=== PATIENT | female | born 1950 | race Caucasian/White ===

== ENCOUNTER 2016-11-21 14:19 | Emergency (ER) | payer OTHER ==
[~2016-11-21] VITALS: Ht 152.4 cm; Wt 87.0 kg
[2016-11-21 14:27] VITALS: Ht 152.4 cm; Wt 87.0 kg
[2016-11-21] MEDS ORDERED: METF1000 PO (17:40)
[2016-11-21] MEDS ORDERED: AMLO-147 PO (17:41)
[2016-11-21] MEDS ORDERED: HYD25 PO (17:41)
[2016-11-21] MEDS ORDERED: LISI20TA11 PO (17:42)
[2016-11-21] MEDS ORDERED: ATOR40TA68 PO (17:42)
[2016-11-21] MEDS ORDERED: GLIM2TAB PO (17:42)
[2016-11-21] MEDS ORDERED: CARV6.2579 PO (17:43)
[2016-11-21] MEDS ORDERED: ONDANSETRON 4 MG INJ IV STA (17:57)
[2016-11-21] MEDS ORDERED: HYDROmorphONE 1 MG/ML SYG IV STA (17:57)
[2016-11-21 18:14] LABS: BASOPHILS % 0.2 % (0.0-2.0); HEMATOCRIT 39.6 % (37.0-47.0); HEMOGLOBIN 13.2 g/dl (12.0-16.0); LYMPHOCYTES # 1.6 10^3/ul (0.8-2.9); LYMPHOCYTES % 17.4 % (15.0-51.0); MEAN CORPUSCULAR HEMOGLOBIN 30.8 pg (29.0-33.0); MEAN CORPUSCULAR HGB CONC 33.3 g/dl (32.0-37.0); MEAN CORPUSCULAR VOLUME 92.5 fl (82.0-101.0); MEAN PLATELET VOLUME 9.5 fl (7.4-10.4); MONOCYTE # 1.1 10^3/ul (0.3-0.9); MONOCYTES % 12.7 % (0.0-11.0); NEUTROPHILS % 69.5 % (39.0-77.0); PLATELET COUNT 229 10^3/UL (140-415); RED BLOOD COUNT 4.28 10^6/ul (4.20-5.40); RED CELL DISTRIBUTION WIDTH 12.7 % (11.5-14.5); WHITE BLOOD COUNT 8.9 10^3/ul (4.8-10.8)
[2016-11-21 18:21] LABS: ALBUMIN 4.1 g/dl (3.3-4.9); ALBUMIN/GLOBULIN RATIO 0.83; BILIRUBIN,INDIRECT 0.6 mg/dl (0-1.1); BILIRUBIN,TOTAL 0.6 mg/dl (0.2-1.3)
[2016-11-21 18:24] LABS: ADD UMIC YES; UR ASCORBIC ACID NEGATIVE (NEGATIVE); UR BILIRUBIN (Dip) 1+ mg/dL (NEGATIVE); UR BLOOD (Dip) NEGATIVE (NEGATIVE); UR CLARITY SLIGHTLY CLOUDY (CLEAR); UR COLOR AMBER (YELLOW); UR GLUCOSE (Dip) 1+ mg/dL (NEGATIVE); UR KETONES (Dip) TRACE mg/dL (NEGATIVE); UR LEUKOCYTE ESTERASE (Dip) 2+ Leu/ul (NEGATIVE); UR MUCUS MODERATE /HPF (NONE SEEN); UR NITRITE (Dip) NEGATIVE (NEGATIVE); UR RBC 3 /HPF (0-5); UR SPECIFIC GRAVITY (Dip) 1.033 (1.003-1.030); UR SQUAMOUS EPITHELIAL CELL FEW /HPF (FEW); UR TOTAL PROTEIN (Dip) 1+ mg/dl (NEGATIVE); UR UROBILINOGEN (Dip) 2+ mg/dL (NEGATIVE)
[2016-11-21] MEDS ORDERED: IOHEXOL 300MG/ML 150 ML BTL ONE (20:10)
[2016-11-21] MEDS ORDERED: SOD CHLORIDE 0.9% 100 ML ONE (20:10)
--- NOTE | 2016-11-21 21:46 | RADRPT ---
PROCEDURE: CT Abdomen and Pelvis with contrast. CLINICAL INDICATION: Abdominal pain. TECHNIQUE: CT scan of the abdomen and pelvis with contrast was performed on a multi-detector high- resolution CT scanner. The patient was scanned following the uncomplicated intravenous administrati on of 100 cc of Visipaque 320. Coronal and sagittal reformatted images were obtained from the axial source images. Images were reviewed on a high-resolution PACS workstation. The total exam CTDI equa ls 22.90 mGy and the total exam DLP equals 1411.92 mGy-cm. One or more of the following dose reduction techniques were used: Automated exposure control. Adjustment of the mA and/or kV according to patient size. Use of iterative reconstruction technique. COMPARISON: None. FINDINGS: CT abdomen: The lung bases are remarkable for bibasilar atelectasis. The heart size is mildly enlarged without pericardial thickening or effusion. Coronary artery calcifications are present. The liver is normal in size and density . There is approximately 1.8 cm indeterminate hypodensity i n segment 6 of the liver. Trace perihepatic and perisplenic ascites is present. The spleen is naga l in size and homogeneous in density. The stomach is partially collapsed, but is grossly unremarkab le. The pancreas as visualized is normal. The gallbladder is unremarkable. There is no evidence f or biliary dilatation. The adrenal glands are symmetric and normal. The kidneys are symmetrically unremarkable as well. No renal calculus or obstructive uropathy or mass lesion is seen. The aorta is of normal caliber. Aortic vascular calcifications are present. There is no retroperit shepard lymphadenopathy. The earline hepatis region is clear. There is a small bowel and fluid containi ng periumbilical hernia. There are moderately dilated multiple loops of small bowel proximal to the periumbilical hernia with decompressed distal ileal loops in keeping with at least partial small bow el obstruction. There is mild mesenteric edema in the root of the mesentery. CT pelvis: The small bowel loops situated within the pelvis are unremarkable. The uterus is absent. The pelvi c sidewalls and inguinal regions are clear. The sigmoid colon and rectum are remarkable for sigmoid diverticulosis. No mass, lymphadenopathy, or free fluid is seen. The bladder is normal. The surro unding osseous structures are unremarkable. No osteolytic or osteoblastic lesion is detected. IMPRESSION: 1. Small bowel containing periumbilical hernia with moderate dilatation of multiple loops of proxima l small bowel with decompressed ileal loops in keeping with at least partial small bowel obstruction . Fluid is seen in the hernia sac. Mild mesenteric edema. Trace ascites in the upper abdomen. 2. Sigmoid diverticulosis without evidence of acute diverticulitis. 3. Approximately 1.8 cm indeterminate hypodensity within the right posterior hepatic lobe (segment 6). Consider liver MRI with contrast for definitive characterization. 4. Small hiatal hernia. 5. Aortoiliac atherosclerosis. 6. Mild cardiomegaly. RPTAT: HHO .Felix Watts MD, Date Time Electronically viewed and signed by .Felix Watts MD, on 11/21/2016 21:46 .O/
--- NOTE | 2016-11-21 23:01 | ERD ---
ER Documentation Chief Complaint Date/Time DATE: 11/21/16 TIME: 22:58 Chief Complaint VOMITING X 3 DAYS HPI This 66-year-old female complains of vomiting for 3 days. She says she had a bowel movement yesterday. She said his bowel movement was solid. She has no fever she says she has no abdominal pain she says she vomits mostly when she attempts any oral intake. No fever chills or shortness of breath no urinary symptoms. There is no blood or bile in the vomit ROS All systems reviewed and are negative except as per history of present illness. Medications Home Meds Reported Medications Carvedilol* (Carvedilol*) 6.25 Mg Tablet, 6.25 MG PO BID, #60 TAB 11/21/16 Atorvastatin* (Atorvastatin*) 40 Mg Tablet, 40 MG PO DAILY, #30 TAB 11/21/16 Glimepiride* (Glimepiride*) 2 Mg Tablet, 2 MG PO WITH BREAKFAST, TAB 11/21/16 Lisinopril* (Lisinopril*) 20 Mg Tablet, 20 MG PO DAILY, #30 TAB 11/21/16 Amlodipine Besylate* (Amlodipine Besylate*) 10 Mg Tablet, 10 MG PO DAILY, #30 TAB 11/21/16 Hydrochlorothiazide* (Hydrochlorothiazide*) 25 Mg Tab, 25 MG PO DAILY, #30 TAB 11/21/16 Metformin Hcl* (Metformin Hcl*) 1,000 Mg Tablet, 1000 MG PO WITH BREAKFAST DINNE , #60 TAB 11/21/16 Allergies Allergies: Coded Allergies: No Known Allergy (Unverified , 11/21/16) PMhx/Soc Hx Alcohol Use: No Hx Substance Use: No Hx Tobacco Use: No Smoking Status: Never smoker FmHx Family History: No coronary disease Physical Exam Vitals Vital Signs Date Time Temp Pulse Resp B/P Pulse Ox O2 Delivery O2 Flow Rate FiO2 11/21/16 22:15 97.6 79 18 141/82 96 Room Air Nasal Cannula 11/21/16 18:44 97.9 85 18 118/93 94 Nasal Cannula 2.0 11/21/16 14:27 98.1 101 18 162/74 98 Physical Exam Const: Well-developed, well-nourished Head: Atraumatic, normocephalic Eyes: Normal Conjunctiva, PERRLA, EOMI, normal sclera, no nystagmus ENT: Normal External Ears, Nose and Mouth, moist mucus membranes. Neck: Full range of motion. No meningismus, no lymphadenopathy. Resp: Clear to auscultation bilaterally, no wheezing, rhonchi, rales Cardio: Regular rate and rhythm, no murmurs, S1 S2 present Abd: Soft, non tender x 4, non distended. Normal bowel sounds, no guarding or rebound, no pulsitile abdominal masses or bruits, there is an umbilical hernia presents but is nontender Skin: No petechiae or rashes, no ecchymosis , no maculopapular rash Back: No midline or flank tenderness Ext: No cyanosis, or edema, FROM x 4, normal inspection, neurovascularly intact x 4 Neur: Awake and alert, STR 5/5 x 4, sensation intact x 4, no focal findings, cerebellum intact Psych: Normal Mood and Affect Result Diagram: 11/21/16 1742 11/21/16 1742 Results 24 hrs Laboratory Tests Test 11/21/16 17:42 White Blood Count 8.910^3/ul Red Blood Count 4.2810^6/ul Hemoglobin 13.2g/dl Hematocrit 39.6% Mean Corpuscular Volume 92.5fl Mean Corpuscular Hemoglobin 30.8pg Mean Corpuscular Hemoglobin Concent 33.3g/dl Red Cell Distribution Width 12.7% Platelet Count 75687^3/UL Mean Platelet Volume 9.5fl Neutrophils % 69.5% Lymphocytes % 17.4% Monocytes % 12.7% Eosinophils % 0.0% Basophils % 0.2% Nucleated Red Blood Cells % 0.0/100WBC Neutrophils # (Manual) 6.210^3/ul Lymphocytes # 1.610^3/ul Monocytes # 1.110^3/ul Eosinophils # 0.010^3/ul Basophils # 0.010^3/ul Nucleated Red Blood Cells # 0.010^3/ul Urine Color JAK Urine Clarity SLIGHTLY CLOUDY Urine pH 5.0 Urine Specific [place] 1.033 Urine Ketones TRACEmg/dL Urine Nitrite NEGATIVEmg/dL Urine Bilirubin 1+mg/dL Urine Urobilinogen 2+mg/dL Urine Leukocyte Esterase 2+Carlos/ul Urine Microscopic RBC 3/HPF Urine Microscopic WBC 5/HPF Urine Squamous Epithelial Cells FEW/HPF Urine Mucus MODERATE/HPF Urine Hemoglobin NEGATIVEmg/dL Urine Glucose 1+mg/dL Urine Total Protein 1+mg/dl Sodium Level 143mmol/L Potassium Level 4.0mmol/L Chloride Level 101mmol/L Carbon Dioxide Level 31mmol/L Anion Gap 15 Blood Urea Nitrogen 49mg/dl Creatinine 1.00mg/dl Glucose Level 245mg/dl Calcium Level 9.0mg/dl Total Bilirubin 0.6mg/dl Direct Bilirubin 0.00mg/dl Indirect Bilirubin 0.6mg/dl Aspartate Amino Transf (AST/SGOT) 31IU/L Alanine Aminotransferase (ALT/SGPT) 22IU/L Alkaline Phosphatase 91IU/L Total Protein 9.0g/dl Albumin 4.1g/dl Globulin 4.90g/dl Albumin/Globulin Ratio 0.83 Lipase 62U/L Current Medications Medications (Trade) Dose Ordered Sig/Yoly Route PRN Reason Start Time Stop Time Status Last Admin Dose Admin Hydromorphone HCl (Dilaudid) 1 mg ONCE STAT IV 11/21/16 17:57 11/21/16 17:58 DC 11/21/16 18:42 Ondansetron HCl (Zofran Inj) 4 mg ONCE STAT IV 11/21/16 17:57 11/21/16 17:58 DC 11/21/16 18:41 Iohexol 150 ml 150 ml STK-MED ONCE .ROUTE 11/21/16 20:10 11/21/16 20:11 DC 11/21/16 20:29 Sodium Chloride (NS) 100 ml @ ud STK-MED ONCE .ROUTE 11/21/16 20:10 11/21/16 20:11 DC 11/21/16 20:29 Procedures/MDM PROCEDURE: CT Abdomen and Pelvis with contrast. CLINICAL INDICATION: Abdominal pain. TECHNIQUE: CT scan of the abdomen and pelvis with contrast was performed on a multi-detector high-resolution CT scanner. The patient was scanned following the uncomplicated intravenous administration of 100 cc of Visipaque 320. Coronal and sagittal reformatted images were obtained from the axial source images. Images were reviewed on a high-resolution PACS workstation. The total exam CTDI equals 22.90 mGy and the total exam DLP equals 1411.92 mGy-cm. One or more of the following dose reduction techniques were used: Automated exposure control. Adjustment of the mA and/or kV according to patient size. Use of iterative reconstruction technique. COMPARISON: None. FINDINGS: CT abdomen: The lung bases are remarkable for bibasilar atelectasis. The heart size is mildly enlarged without pericardial thickening or effusion. Coronary artery calcifications are present. The liver is normal in size and density . There is approximately 1.8 cm indeterminate hypodensity in segment 6 of the liver. Trace perihepatic and perisplenic ascites is present. The spleen is normal in size and homogeneous in density. The stomach is partially collapsed, but is grossly unremarkable. The pancreas as visualized is normal. The gallbladder is unremarkable. There is no evidence for biliary dilatation. The adrenal glands are symmetric and normal. The kidneys are symmetrically unremarkable as well. No renal calculus or obstructive uropathy or mass lesion is seen. The aorta is of normal caliber. Aortic vascular calcifications are present. There is no retroperitoneal lymphadenopathy. The earline hepatis region is clear. There is a small bowel and fluid containing periumbilical hernia. There are moderately dilated multiple loops of small bowel proximal to the periumbilical hernia with decompressed distal ileal loops in keeping with at least partial small bowel obstruction. There is mild mesenteric edema in the root of the mesentery. CT pelvis: The small bowel loops situated within the pelvis are unremarkable. The uterus is absent. The pelvic sidewalls and inguinal regions are clear. The sigmoid colon and rectum are remarkable for sigmoid diverticulosis. No mass, lymphadenopathy, or free fluid is seen. The bladder is normal. The surrounding osseous structures are unremarkable. No osteolytic or osteoblastic lesion is detected. IMPRESSION: 1. Small bowel containing periumbilical hernia with moderate dilatation of multiple loops of proximal small bowel with decompressed ileal loops in keeping with at least partial small bowel obstruction. Fluid is seen in the hernia sac. Mild mesenteric edema. Trace ascites in the upper abdomen. 2. Sigmoid diverticulosis without evidence of acute diverticulitis. 3. Approximately 1.8 cm indeterminate hypodensity within the right posterior hepatic lobe (segment 6). Consider liver MRI with contrast for definitive characterization. 4. Small hiatal hernia. 5. Aortoiliac atherosclerosis. 6. Mild cardiomegaly. RPTAT: HHO .Felix Watts MD, Date Time Electronically viewed and signed by .Felix Watts MD, MD on 11/21/2016 21:46 .O/ CC: ZBIGNIEW ABRAHAM DO Reexamination the patient does not have any abdominal pain and no tenderness to the hernia. I did manually put pressure on the hernia to reduce it and can get most of the hernia back inside the abdominal cavity. The hernia did return but not to the degree that it was initially. The patient is safe to go home as she is not having a complete bowel obstruction and she has no abdominal pain or hernia pain. I spoke with her and the family and given warning signs to return including abdominal pain and persistent vomiting or any other new symptoms Departure Diagnosis: Primary Impression: Vomiting Vomiting type: unspecified Vomiting Intractability: non-intractable Nausea presence: with nausea Qualified Code: R11.2 - Non-intractable vomiting with nausea, unspecified vomiting type Additional Impression: Umbilical hernia Obstruction and gangrene presence: without obstruction or gangrene Qualified Code: K42.9 - Umbilical hernia without obstruction and without gangrene Condition: Stable ZBIGNIEW ABRAHAM DO Nov 21, 2016 23:01
[2016-11-21] MEDS ORDERED: ONDA4TAB14 PO (23:02)
[2016-11-21 23:13] VITALS: BP 133/74; PULSE 84; RESP 17; TEMP 96.5
== END 2016-11-21 23:15 | disposition home or self-care (01) ==
LOC: E/R 14:19
DX: R11.2 Nausea with vomiting, unspecified (principal); K42.9 Umbilical hernia without obstruction or gangrene; Z79.84 Long term (current) use of oral hypoglycemic drugs
CPT/HCPCS: 36415; 74177; 80053; 81001; 83690; 85025; 96374; 96375; 99285; J1170; J2405; Q9967

== ENCOUNTER 2016-11-23 11:30 | Inpatient (IN) | payer OTHER ==
[~2016-11-23] VITALS: Ht 152.4 cm; Wt 90.0 kg
[~2016-11-23 11:30] MED LIST: AMLO-147 PO; ATOR40TA68 PO; CARV6.2579 PO; GLIM2TAB PO; HYD25 PO; LISI20TA11 PO; METF1000 PO; ONDA4TAB14 PO
[2016-11-23 14:38] LABS: BASOPHILS % 0.2 % (0.0-2.0); HEMATOCRIT 40.8 % (37.0-47.0); HEMOGLOBIN 13.8 g/dl (12.0-16.0); LYMPHOCYTES # 2.5 10^3/ul (0.8-2.9); LYMPHOCYTES % 19.5 % (15.0-51.0); MEAN CORPUSCULAR HEMOGLOBIN 31.5 pg (29.0-33.0); MEAN CORPUSCULAR HGB CONC 33.8 g/dl (32.0-37.0); MEAN CORPUSCULAR VOLUME 93.2 fl (82.0-101.0); MEAN PLATELET VOLUME 9.5 fl (7.4-10.4); MONOCYTE # 1.5 10^3/ul (0.3-0.9); MONOCYTES % 11.4 % (0.0-11.0); NEUTROPHILS % 68.5 % (39.0-77.0); PLATELET COUNT 201 10^3/UL (140-415); RED BLOOD COUNT 4.38 10^6/ul (4.20-5.40); RED CELL DISTRIBUTION WIDTH 12.1 % (11.5-14.5); WHITE BLOOD COUNT 12.7 10^3/ul (4.8-10.8)
[2016-11-23 15:16] LABS: ALBUMIN 4.1 g/dl (3.3-4.9); ALBUMIN/GLOBULIN RATIO 0.89; BILIRUBIN,INDIRECT 0.5 mg/dl (0-1.1); BILIRUBIN,TOTAL 0.5 mg/dl (0.2-1.3); CALCIUM 8.7 mg/dl (8.4-10.2); CREATININE 1.22 mg/dl (0.44-1.00); POTASSIUM 3.9 mmol/L (3.5-5.1); TOTAL PROTEIN 8.7 g/dl (6.1-8.1)
[2016-11-23] MEDS ORDERED: ONDANSETRON 4 MG INJ IV STA (16:40)
[2016-11-23] MEDS ORDERED: SOD CHLORIDE 0.9% 100 ML ONE (17:21)
[2016-11-23] MEDS ORDERED: IODIXANOL LOCM 100 ML BTL ONE (17:21)
[2016-11-23] MEDS ORDERED: IOHEXOL 300MG/ML 150 ML BTL ONE (17:21)
--- NOTE | 2016-11-23 18:25 | RADRPT ---
PROCEDURE: CT abdomen and pelvis with IV contrast. CLINICAL INDICATION: Abdomen pain. TECHNIQUE: CT scan of the abdomen and pelvis was performed on a [address] scanner. The patient is scanned following the uncomplicated IV administration of 80 cc Visipaque-320. Coronal and sagitt al reformatted images were obtained from the axial source images. Images were reviewed on a tomoguides PACS workstation. Total radiation dose: Total CTDIvol: 22.4 mGy. Total DLP: 1299 mGy-cm. One or more of the followi ng dose reduction techniques were used: automated exposure control, adjustment of the mA and/or kV a ccording to patient size, or use of iterative reconstruction technique. COMPARISON: CT abdomen pelvis, 11/21/2016. FINDINGS: CT abdomen: The lung bases are clear. The heart is not enlarged without pericardial thickening or effusion.. There is 1.5 cm low density lesion in the inferior tip of the right liver, unchanged. The liver is n ormal in size and density without focal mass or intrahepatic biliary dilatation. The spleen is norm al in size and homogeneous in density. The stomach is partially collapsed but is grossly unremarkab le. The pancreas as visualized is normal. The gallbladder is normal and there is no evidence of biliary dilatation. The adrenal glands are symmetrical and normal. The kidneys are symmetrically normal bilaterally. N o renal calculus or obstructive uropathy or mass lesion is seen.. The aorta is normal in caliber. There is no retroperitoneal lymphadenopathy. The earline hepatis reg ion is clear. There are moderately dilated multiple loops of small bowel proximal to the umbilical hernia with decompressed distal ileal loops in keeping with at least partial small bowel obstruction . There is mild mesenteric edema in the root of the mesentery. CT pelvis: There is no indication of acute appendicitis in the right lower quadrant. There is diverticulosis of the sigmoid colon without evidence of diverticulitis.. The female pelvic organs are normal. The p elvic sidewalls and inguinal regions are clear. No mass, lymphadenopathy or free fluid is seen. No acute inflammation seen. The urinary bladder is normal. The surrounding osseous structures are unremarkable. No osteolytic or osteoblastic lesion is detect ed. IMPRESSION: 1. Moderately dilated multiple loops of small bowel proximal to the umbilical hernia with decompres sed distal ileal loops in keeping with partial small bowel obstruction. There has been interval wor sening of the small bowel obstruction. Recommend gastrografin small-bowel series. Small fluid in t he hernia sac. 2. 1.5 cm low density lesion in the inferior tip of the right liver, unchanged. 3. Diverticulosis of the sigmoid colon without evidence of diverticulitis. RPTAT: GG .Federico Driver MD, Date Time Electronically viewed and signed by .Federico Driver MD, on 11/23/2016 18:25 .Y/
--- NOTE | 2016-11-23 18:30 | ERA ---
ER Documentation Chief Complaint Date/Time DATE: 11/23/16 TIME: 18:21 Chief Complaint ap since last tuesday HPI This is a 66-year-old female with a history of diabetes, hypertension, hyperlipidemia, known periumbilical abdominal hernia who is presenting to the emergency department with recurrence of her abdominal symptoms. The patient presented 3 days ago with similar symptoms of periumbilical abdominal pain and distention with nausea and vomiting. The patient endorses yellow and clear vomit. It is nonbilious and nonbloody. The patient had a CAT scan during her previous emergency visit that demonstrated a small bowel containing periumbilical hernia with moderate dilatation of multiple loops of proximal small bowel with decompressed ileal loops that was concerning for a partial small bowel obstruction. There is also a 1.8 cm indeterminate hypodensity in the liver. A surgical evaluation was completed and it was felt that the patient was stable for discharge after decompression of the hernia. The patient 's symptoms recurred one day after her previous visit. She continues to have periumbilical abdominal pain. She continues to be nauseated and with vomiting as described above. She has had a decreased appetite as well. She saw her primary care doctor today who recommended that she be reevaluated in the emergency department. The patient denies fever or chills. She denies chest pain. She has had some shortness of breath associated with her abdominal distention. She does not had any changes to urination. She has had no bleeding or burning or pain with urination. She does endorse increased constipation. She has not had any diarrhea. ROS All systems reviewed and are negative except as per history of present illness. Medications Home Meds Active Scripts Ondansetron (Ondansetron Odt) 4 Mg Tab.rapdis, 4 MG PO Q6H Y for NAUSEA AND/OR VOMITING, #10 TAB Prov:ZBIGNIEW ABRAHAM DO 11/21/16 Reported Medications Carvedilol* (Carvedilol*) 6.25 Mg Tablet, 6.25 MG PO BID, #60 TAB 11/21/16 Atorvastatin* (Atorvastatin*) 40 Mg Tablet, 40 MG PO DAILY, #30 TAB 11/21/16 Glimepiride* (Glimepiride*) 2 Mg Tablet, 2 MG PO WITH BREAKFAST, TAB 11/21/16 Lisinopril* (Lisinopril*) 20 Mg Tablet, 20 MG PO DAILY, #30 TAB 11/21/16 Amlodipine Besylate* (Amlodipine Besylate*) 10 Mg Tablet, 10 MG PO DAILY, #30 TAB 11/21/16 Hydrochlorothiazide* (Hydrochlorothiazide*) 25 Mg Tab, 25 MG PO DAILY, #30 TAB 11/21/16 Metformin Hcl* (Metformin Hcl*) 1,000 Mg Tablet, 1000 MG PO WITH BREAKFAST DINNE , #60 TAB 11/21/16 Allergies Allergies: Coded Allergies: No Known Allergy (Unverified , 11/23/16) PMhx/Soc Hx Miscellaneous Medical Probl: Yes (hernia) Hx Alcohol Use: No Hx Substance Use: No Hx Tobacco Use: No Smoking Status: Never smoker FmHx Family History: diabetes Physical Exam Vitals Vital Signs Date Time Temp Pulse Resp B/P Pulse Ox O2 Delivery O2 Flow Rate FiO2 11/23/16 21:33 98.1 94 18 135/81 100 Room Air 11/23/16 18:43 98.1 96 18 120/68 95 Room Air 11/23/16 14:10 84 144/86 100 Room Air 11/23/16 11:47 98.1 99 18 138/93 99 Physical Exam Const: NAD, Well Nourished, Well Developed Head: Atraumatic Eyes: Normal Conjunctiva ENT: Normal External Ears, Nose. Dry Mucous Membranes. Neck: Full range of motion. ~ No meningismus. Resp: Clear to auscultation bilaterally Cardio: Regular rate and rhythm, no murmurs Abd: Soft, periumbilical tenderness, distended. Periumbilical hernia, reducible, not cyanotic. Decreased bowel sounds Skin: No petechiae or rashes Back: No midline or flank tenderness Ext: No cyanosis, or edema Neur: Awake and alert, strength normal, sensation normal, CN intact. Psych: Normal Mood and Affect Result Diagram: 11/23/16 1430 11/23/16 1430 Results 24 hrs Laboratory Tests Test 11/23/16 14:30 11/23/16 17:30 White Blood Count 12.710^3/ul Red Blood Count 4.3810^6/ul Hemoglobin 13.8g/dl Hematocrit 40.8% Mean Corpuscular Volume 93.2fl Mean Corpuscular Hemoglobin 31.5pg Mean Corpuscular Hemoglobin Concent 33.8g/dl Red Cell Distribution Width 12.1% Platelet Count 99375^3/UL Mean Platelet Volume 9.5fl Neutrophils % 68.5% Lymphocytes % 19.5% Monocytes % 11.4% Eosinophils % 0.0% Basophils % 0.2% Nucleated Red Blood Cells % 0.0/100WBC Neutrophils # (Manual) 8.710^3/ul Lymphocytes # 2.510^3/ul Monocytes # 1.510^3/ul Eosinophils # 0.010^3/ul Basophils # 0.010^3/ul Nucleated Red Blood Cells # 0.010^3/ul Sodium Level 141mmol/L Potassium Level 3.9mmol/L Chloride Level 96mmol/L Carbon Dioxide Level 31mmol/L Anion Gap 18 Blood Urea Nitrogen 54mg/dl Creatinine 1.22mg/dl Glucose Level 209mg/dl Calcium Level 8.7mg/dl Total Bilirubin 0.5mg/dl Direct Bilirubin 0.00mg/dl Indirect Bilirubin 0.5mg/dl Aspartate Amino Transf (AST/SGOT) 47IU/L Alanine Aminotransferase (ALT/SGPT) 62IU/L Alkaline Phosphatase 90IU/L Total Protein 8.7g/dl Albumin 4.1g/dl Globulin 4.60g/dl Albumin/Globulin Ratio 0.89 Lipase 81U/L Lactic Acid Level 3.1mmol/L Current Medications Medications (Trade) Dose Ordered Sig/Yoly Route PRN Reason Start Time Stop Time Status Last Admin Dose Admin Ondansetron HCl (Zofran Inj) 4 mg ONCE STAT IV 11/23/16 16:40 11/23/16 16:43 DC 11/23/16 17:21 IV Flush 10 ml 10 ml STK-MED ONCE .ROUTE 11/23/16 17:21 11/23/16 17:22 DC 11/23/16 17:48 Sodium Chloride (NS) 100 ml @ ud STK-MED ONCE .ROUTE 11/23/16 17:21 11/23/16 17:22 DC 11/23/16 17:48 Iohexol (Omnipaque 300mg/ ml) 150 ml STK-MED ONCE .ROUTE 11/23/16 17:21 11/23/16 17:22 DC Iodixanol 100 ml 100 ml STK-MED ONCE .ROUTE 11/23/16 17:21 11/23/16 17:22 DC 11/23/16 17:48 Sodium Chloride 1,000 ml @ 0 mls/hr Q0M ONCE IV 11/23/16 19:27 11/23/16 19:30 DC 11/23/16 21:25 Sodium Chloride (NS) 1,000 ml @ 80 mls/hr [id number] IV 11/23/16 19:27 11/24/16 07:56 11/23/16 21:26 Ondansetron HCl (Zofran Inj) 4 mg BRIDGE ORDER PRN IV NAUSEA AND/OR VOMITING 11/23/16 19:30 11/24/16 19:29 Acetaminophen (Tylenol Tab) 650 mg ER BRIDGE PRN PO MILD PAIN/FEVER 11/23/16 19:30 11/24/16 19:29 Procedures/MDM The patient's presenting with concerns of a persistent small bowel obstruction. This requires repeat evaluation. The patient's blood work was obtained and reviewed. Patient did have a leukocytosis, and I am concerned about an infectious versus inflammatory etiology. The patient is not anemic. She does have an increasing creatinine at 1.22 today with an elevated BUN at 54. The patient has been nauseated and has been vomiting. She has had a decreased appetite with decreased oral fluid intake. The patient's FELICIANO could be prerenal. The patient also has a lactic acidosis at 3.1, which is also concerning. She will be given IV fluids in the emergency department. EKG read by me: Rate/Rhythm: Regular rate and rhythm at a rate of 91 Intervals: Normal [place]: Normal Nonspecific repolarization abnormality but no ST or T-wave changes concerning for acute coronary syndrome. Impression: No evidence of ischemia or arrhythmia CT A/P Repeat CT scan was performed to evaluate for small bowel obstruction. It revealed the following as read by the radiologist: IMPRESSION: 1. Moderately dilated multiple loops of small bowel proximal to the umbilical hernia with decompressed distal ileal loops in keeping with partial small bowel obstruction. There has been interval worsening of the small bowel obstruction. Recommend gastrografin small-bowel series. Small fluid in the hernia sac. 2. 1.5 cm low density lesion in the inferior tip of the right liver, unchanged. 3. Diverticulosis of the sigmoid colon without evidence of diverticulitis. Electronically viewed and signed by .Federico Driver MD, on 11/23/2016 18:25 Given concerns of a worsening small bowel obstruction, general surgery was called to discuss the case. There is a possibility of operative intervention. An NG tube was placed and an x-ray was obtained to confirm placement. The patient will be admitted to the hospital for further evaluation and management. She will be made n.p.o. for now with maintenance fluids. Departure Diagnosis: Primary Impression: Abdominal pain Qualified Code: R10.33 - Periumbilical abdominal pain Additional Impressions: Periumbilical hernia Partial small bowel obstruction Condition: NARENDRA Loya MD Nov 23, 2016 18:30
[2016-11-23] MEDS ORDERED: SOD CHLORIDE 0.9% 1,000 ML IV SCH (19:27)
[2016-11-23] MEDS ORDERED: SOD CHLORIDE 0.9% 1,000 ML IV ONE (19:27)
[2016-11-23] MEDS ORDERED: ONDANSETRON 4 MG INJ IV PRN ×3 (19:30→23:30)
[2016-11-23] MEDS ORDERED: ACETAMINOPHEN 325 MG TAB PO PRN ×2 (19:30→23:00)
--- NOTE | 2016-11-23 20:43 | RADRPT ---
PROCEDURE: XR Abdomen. CLINICAL INDICATION: Nasogastric tube placement TECHNIQUE: AP abdomen x-ray 4 views COMPARISON: None. FINDINGS: There is a nasogastric tube placed, with the tip seen in the lower gastric body on the final image. There are dilated small bowel loops in the abdomen, measuring up to 6.4 cm on the left. There is c ontrast in the renal collecting systems and urinary bladder. There is moderate stool in the right c olon. The osseus structures are unremarkable. IMPRESSION: 1. Nasogastric tube with the tip in the lower stomach on the fourth image.. 2. Dilated small bowel loops, up to 6.5 cm, likely consistent with small bowel obstruction.. RPTAT: HBST .Artemio Prajapati MD, MD Date Time Electronically viewed and signed by .Artemio Prajapati MD, on 11/23/2016 20:42 .T/
[2016-11-23 21:33] VITALS: TEMP 98.1
[2016-11-23] MEDS ORDERED: morphine 4 MG/ML VIAL IV PRN (23:00)
[2016-11-23] MEDS ORDERED: CEFAZOLIN 2 GM/50 ML (PMX) 50 ML IVPB SCH (23:00)
[2016-11-23] MEDS ORDERED: D5-NS + KCL 20 MEQ 1,000 ML IV SCH (23:00)
[2016-11-23] MEDS ORDERED: NEOSTIGMINE 3 MG/3 ML SYRINGE ONE (23:30)
[2016-11-23] MEDS ORDERED: MIDAZOLAM 1 MG/ML 2 ML INJ IV PRN (23:30)
[2016-11-23] MEDS ORDERED: FENTAnyl 50 MCG/ML VIAL IV PRN ×3 (23:30)
[2016-11-23] MEDS ORDERED: hydrALAzine 20 MG INJ IV PRN (23:30)
[2016-11-23] MEDS ORDERED: DIPHENHYDRAMINE 50 MG INJ IV PRN (23:30)
[2016-11-23] MEDS ORDERED: HYDROmorphONE (0.2 MG/ML) 10ML SYG IV PRN ×3 (23:30)
[2016-11-23] MEDS ORDERED: ROCURONIUM 50 MG INJ ONE (23:30)
[2016-11-23] MEDS ORDERED: GLYCOPYRROLATE 0.4 MG INJ ONE (23:30)
[2016-11-23] MEDS ORDERED: OXYCODONE/ACETAMINOPHEN (5/325) TAB PO PRN ×2 (23:30)
[2016-11-23] MEDS ORDERED: LIDOCAINE 2% (SDV) 5 ML INJ ONE (23:30)
[2016-11-23] MEDS ORDERED: METOCLOPRAMIDE 10 MG INJ IV PRN (23:30)
[2016-11-23] MEDS ORDERED: EPHEDrine SULFATE 50 MG/5 ML SYG IV PRN (23:30)
[2016-11-23] MEDS ORDERED: MEPERIDINE 100 MG INJ ONE (23:30)
[2016-11-23] MEDS ORDERED: PROPOFOL 20 ML ONE (23:30)
[2016-11-23] MEDS ORDERED: SUCCINYLCHOLINE CHLORIDE 100 MG/5 ML SYG IV ONE (23:30)
[2016-11-23] MEDS ORDERED: MEPERIDINE 25 MG INJ IV PRN (23:30)
[2016-11-23] MEDS ORDERED: LABETALOL HCL 20MG INJ IV PRN (23:30)
[2016-11-24] VITALS (29 sets, daily range): BP systolic 107–154; BP diastolic 54–80; PULSE 82–96; RESP 16–32; Ht 152.4 cm; Wt 90.0 kg
[2016-11-24] MEDS ORDERED: NEOSTIGMINE 3 MG/3 ML SYRINGE ONE (00:01)
[2016-11-24] MEDS ORDERED: CEFAZOLIN 1 GM INJ ONE (00:01)
[2016-11-24] MEDS ORDERED: GLYCOPYRROLATE 0.4 MG INJ ONE (00:01)
--- NOTE | 2016-11-24 00:10 | SIPON ---
Date/Time of Note Date/Time of Note DATE: 11/24/16 TIME: 00:09 Operative Report Preoperative Diagnosis Incarcerated umbilical hernia and small bowel obstruction Postoperative Diagnosis Same Operation/Procedure Performed 1. Repair umbilical hernia with mesh 2. Reduction of small bowel obstruction Surgeon: EUGENIO MERAZ MD Anesthesia Type: general Estimated Blood Loss: minimal Specimens Hernia sac Grafts/Implants Large ventralex mesh Complications: no EUGENIO MERAZ MD Nov 24, 2016 00:10
--- NOTE | 2016-11-24 00:15 | OPR ---
Date/Time of Note Date/Time of Note DATE: 11/24/16 TIME: 00:10 Operative Report Procedure Date: Nov 24, 2016 Preoperative Diagnosis Incarcerated umbilical hernia with small bowel obstruction Postoperative Diagnosis Same Operation Performed 1. Repair of umbilical hernia with mesh 2. Reduction of small bowel obstruction Surgeon: EUGENIO MERAZ MD Anesthesia Type: general Anesthesiologist: JERE PLAZA MD Estimated Blood Loss: minimal Transfusion Required: no Specimens Hernia sac Grafts/Implants Large ventralex mesh Complications: no Pt Condition Post Procedure: stable Disposition: PACU Indications The patient is a 66-year-old female who presented to the ER with nausea vomiting and crampy abdominal pain. Her CT showed a umbilical hernia with a small bowel obstruction present in the hernia sac. I discussed proceeding with urgent open repair of her umbilical hernia with possible mesh and possible bowel resection. All benefits, risks, alternatives were discussed in detail with the patient and her family. All questions were answered. The patient elected proceed Operative\Procedure Findings Umbilical hernia containing small bowel a 4 cm umbilical hernia Procedure Description The patient was brought to operative room placed supine on the table. After preop antibiotics and SCDs were applied, the patient was intubated. The abdomen was then cleaned prepped and draped in usual sterile fashion. The umbilicus was injected with 20 cc 1% lidocaine with epi. A horizontal incision was made in the inferior umbilical fold. I medially identified the hernia sac and opened this sharply. There was a fair amount of ascitic fluid present as well as small bowel. The small bowel was viable. The transition zone was evident in the hernia sac. The small bowel was easily reduced into the abdominal cavity which reduce the bowel obstruction. I identified my hernia orifice. It was approximately 4 cm. There were no other omental or small bowel adhesions to the fascia. I then divided the hernia sac with electrocautery and passed off the field specimen. I created a pocket at the 3 and 9 o'clock position above the CARE abdominal wall fascia with electrocautery. I deployed a large ventral ex mesh through the defect. Healed up against the abdominal wall. Cover the defect well with good degree of overlap. I sutured the 2 leaves of the mesh at the 3 to 9 o'clock position to the anterior abdominal fascia with 0 Ethibond. At the 12 and 6 o'clock position, I sutured the intra-abdominal fascia to the polypropylene portion of the mesh. These were full-thickness through polypropylene in the back to the abdominal wall. In between these 4 cardinal directions I placed full-thickness through polypropylene portion of the mesh back through the full-thickness of the abdominal wall. The mesh sat well covered the defect well there was no gaps noted. The subcutaneous tissue was then closed over the mesh with interrupted 3-0 Vicryl. The skin was closed with 4-0 Monocryl, Mastisol, Steri-Strips. A 2 x 2 gauze and Tegaderm was applied. The patient tolerated procedure well. She was extubated in the OR returned to the recovery room in stable condition. EUGENIO MERAZ MD Nov 24, 2016 00:15
[2016-11-24] MEDS ORDERED: BUPIVACAINE 0.5%/EPI (SDV) 30 ML INJ INJ ONE (00:18)
[2016-11-24] MEDS ORDERED: BUPIVACAINE 0.5%/EPI (SDV) 10 ML INJ ONE (00:28)
[2016-11-24] MEDS ORDERED: NACL 0.9% 3 ML SYG IV SCH (02:00)
[2016-11-24] MEDS: ACCU-CHEK XX SCH (02:00)
[2016-11-24] MEDS ORDERED: hydrALAzine 20 MG INJ IV PRN ×2 (02:00)
[2016-11-24] MEDS ORDERED: ONDANSETRON 4 MG INJ IV PRN (02:00)
[2016-11-24] MEDS ORDERED: morphine 2 MG INJ IV PRN (02:00)
--- NOTE | 2016-11-24 02:50 | CONS ---
DATE OF ADMISSION: 11/23/2016 DATE OF CONSULTATION: 11/23/2016 HISTORY OF PRESENT ILLNESS: Ms. Marcus is a 66-year-old female, who presented to the ER today with recurrence of abdominal pain. She was seen approximately 3 days ago in the emergency room with periumbilical abdominal pain and distention with nausea and vomiting. She was supposedly evaluated and was deemed stable for discharge. She then presented once again today with nausea and vomiting and a CT was consistent with a bowel obstruction and an umbilical hernia. Due to her recurrence, I was called for a consultation. PAST MEDICAL HISTORY: Significant for diabetes, hypertension, hyperlipidemia. MEDICATION: 1. Carvedilol. 2. Atorvastatin. 3. Glimepiride. 4. Lisinopril. 5. Amlodipine. 6. Hydrochlorothiazide. 7. Metformin. ALLERGIES: NO KNOWN DRUG ALLERGIES. PAST SURGICAL HISTORY: Noncontributory. SOCIAL HISTORY: She denies drinking, drug use or smoking. FAMILY HISTORY: History of diabetes. REVIEW OF SYSTEMS: A 14-point review of systems was performed. Pertinent negatives per HPI. PHYSICAL EXAMINATION: GENERAL APPEARANCE: She is a morbidly obese female, in no apparent distress. VITAL SIGNS: She is afebrile, vital signs stable. HEENT: HER head is normocephalic, atraumatic. NECK: Supple. CHEST: Clear to auscultation bilaterally. HEART: Regular rhythm. ABDOMEN: Soft, nondistended, with a nonreducible umbilical hernia. EXTREMITIES: No clubbing, cyanosis, or edema. NEURO: She is grossly intact. PSYCH: She has normal affect and mood. SKIN: No lesions or rashes. LABORATORY: Reveal a white count of 13, hematocrit of 41, and platelets of 201 2. Sodium 141, potassium 3.9, chloride 96, BUN 54, creatinine 1.2, glucose of 209. CT abdomen and pelvis consistent with umbilical hernia with a small bowel obstruction in the abdominal hernia. IMPRESSION AND PLAN: 1. Ms. Marcus is a 66-year-old female with a small bowel obstruction and incarcerated umbilical hernia. 2. Patient needs to be taken to surgery for exploration of her umbilicus with dissection of her hernia . I discussed repair of her umbilical hernia with possible mesh and possible bowel resection. All benefits, risks, alternatives were discussed in detail. Questions answered and the patient elects to proceed. Dictated By: Mickey Tate MD /[place]/cookie /Document#: [id number]
[2016-11-24] MEDS: SOD CHLORIDE 0.9% 1,000 ML IV SCH ×3 (03:16→18:57)
[2016-11-24] MEDS: CEFAZOLIN 2 GM/50 ML (PMX) 50 ML IVPB SCH ×3 (03:25→18:58)
[2016-11-24] MEDS: KETOROLAC 15 MG INJ IV SCH ×5 (03:25→23:52)
[2016-11-24] MEDS: INSULIN ASPART [NOVOLOG] 3 ML PEN SC SCH ×5 (05:00→21:00)
[2016-11-24 05:36] LABS: BASOPHILS % 0.2 % (0.0-2.0); HEMATOCRIT 37.3 % (37.0-47.0); HEMOGLOBIN 11.9 g/dl (12.0-16.0); LYMPHOCYTES # 1.7 10^3/ul (0.8-2.9); LYMPHOCYTES % 12.3 % (15.0-51.0); MEAN CORPUSCULAR HEMOGLOBIN 30.5 pg (29.0-33.0); MEAN CORPUSCULAR HGB CONC 31.9 g/dl (32.0-37.0); MEAN CORPUSCULAR VOLUME 95.6 fl (82.0-101.0); MEAN PLATELET VOLUME 10.2 fl (7.4-10.4); MONOCYTE # 1.3 10^3/ul (0.3-0.9); MONOCYTES % 9.7 % (0.0-11.0); NEUTROPHILS % 77.4 % (39.0-77.0); PLATELET COUNT 146 10^3/UL (140-415); RED CELL DISTRIBUTION WIDTH 12.5 % (11.5-14.5); WHITE BLOOD COUNT 13.8 10^3/ul (4.8-10.8)
[2016-11-24] MEDS ORDERED: PANTOPRAZOLE 40 MG INJ IV SCH (06:00)
[2016-11-24 06:06] LABS: ALBUMIN 2.9 g/dl (3.3-4.9); ALBUMIN/GLOBULIN RATIO 0.8; BILIRUBIN,INDIRECT 0.1 mg/dl (0-1.1); BILIRUBIN,TOTAL 0.1 mg/dl (0.2-1.3); CALCIUM 7.2 mg/dl (8.4-10.2); CREATININE 1.04 mg/dl (0.44-1.00); MAGNESIUM 3.3 mg/dl (1.7-2.5); POTASSIUM 3.8 mmol/L (3.5-5.1); TOTAL PROTEIN 6.5 g/dl (6.1-8.1)
[2016-11-24 06:34] LABS: THYROID STIMULATING HORMONE 1.26 MIU/L (0.465-4.680)
[2016-11-24] MEDS ORDERED: ENOXAPARIN 40 MG/0.4 ML SYG SC SCH (07:00)
--- NOTE | 2016-11-24 08:46 | HP ---
Date/Time of Note Date/Time of Note DATE: 11/24/16 TIME: 08:39 Assessment/Plan VTE Prophylaxis VTE Prophylaxis Intervention: SCD's Lines/Catheters IV Catheter Type (from [facility]): Peripheral IV Assessment/Plan Chief Complaint/Hosp Course This is a 66-year-old female being admitted to the [facility] floor for #1 incarcerated umbilical hernia: Patient is status post repair of incarcerated umbilical hernia. Currently has an NG tube. Follow surgery recommendations for further treatment. Diet initiation and advancement as per surgery orders. #2 small bowel obstruction: Patient is status post repair of small bowel obstruction. NG tube in place. Diet initiation and advancement as per surgery orders. #3 diabetes mellitus: Check hemoglobin A1c, patient is currently n.p.o. at this time. Will put insulin sliding scale. #4 hypertension: Continue to monitor restart medication once patient initiates diet. If needed we will start as needed hydralazine DVT and GI prophylaxis: Further treatment strategy will be implemented as per the clinical course SCDs, acid mary Problems: HPI/ROS Admit Date/Time Admit Date/Time Nov 23, 2016 at 19:29 Hx of Present Illness Complaint: Abdominal pain This is a 66-year-old female with a history of diabetes, hypertension, hyperlipidemia, known periumbilical abdominal hernia who is presenting to the emergency department with recurrence of her abdominal symptoms. The patient presented 3 days ago with similar symptoms of periumbilical abdominal pain and distention with nausea and vomiting. The patient endorses yellow and clear vomit. It is nonbilious and nonbloody. The patient had a CAT scan during her previous emergency visit that demonstrated a small bowel containing periumbilical hernia with moderate dilatation of multiple loops of proximal small bowel with decompressed ileal loops that was concerning for a partial small bowel obstruction. There is also a 1.8 cm indeterminate hypodensity in the liver. A surgical evaluation was completed and it was felt that the patient was stable for discharge after decompression of the hernia. The patient 's symptoms recurred one day after her previous visit. She continues to have periumbilical abdominal pain. She continues to be nauseated and with vomiting as described above. She has had a decreased appetite as well. She saw her primary care doctor today who recommended that she be reevaluated in the emergency department. Upon my examination of the patient, the patient had already returned from surgery for repair of her incarcerated hernia and was doing well. Allergies: NKDA Medications: See MAY ROS Const: As per HPI Eyes : No pain discharge or redness or change in visual acuity ENT: No pain, sore throat, congestion, congestion, dysphagia or discharge Respiratory: No shortness of breath, cough, sputum, wheezing, or pleuritic pain Cardiovascular: No chest pain, palpitation, PND, or edema GI : As per HPI Genitourinary: No dysuria, hematuria, flank pain , discharge or CVA tenderness Musculoskeletal: No joint pain, back pain, neck pain, restricted range of motion in neck or joints Skin: No rash, bruising or hives Neuro: No headache, dizziness, syncope, seizure, focal weakness Endocrine: No polyuria, polydipsia, temperature intolerance Psych: No hallucination, depression, anxiety or suicidal ideation PMH/Family/Social Past Medical History history of diabetes, hypertension, hyperlipidemia, known periumbilical abdominal hernia Past Surgical History None Family History Significant Family History: no pertinent family hx Social History Alcohol Use: none Smoking Status: Never smoker Drug Use: none Exam/Review of Systems Vital Signs Vitals Vital Signs Date Time Temp Pulse Resp B/P Pulse Ox O2 Delivery O2 Flow Rate FiO2 11/24/16 07:32 98.3 89 20 122/70 97 11/24/16 06:22 Nasal Cannula 3.0 Intake and Output 11/23/16 11/23/16 11/24/16 15:00 23:00 07:00 Intake Total 330 ml Output Total 300 ml Balance 30 ml Exam Exam General: Patient is status post surgery lying in bed in no acute distress HEENT: Atraumatic, normocephalic. The pupils are equal, round and reactive. Extraocular motor are intact, NG tube in place Neck: Supple with full range of motion. No rigidity or meningismus Chest: Nontender Lungs: Clear to auscultation bilaterally no crackles rales or wheezing Heart: Normal S1-S2, Regular rhythm and rate. No murmur, S3, or S4 Abdomen: Soft, nontender to palpation, surgical incision is clean dry and intact Extremities: Normal to inspection, no edema no cyanosis Neurologic: Normal mental status, speech normal, cranial nerves II through XII are intact, motor and sensory are intact, no focal weakness Additional Comments PROCEDURE: CT abdomen and pelvis with IV contrast. CLINICAL INDICATION: Abdomen pain. TECHNIQUE: CT scan of the abdomen and pelvis was performed on a [address] scanner. The patient is scanned following the uncomplicated IV administration of 80 cc Visipaque-320. Coronal and sagittal reformatted images were obtained from the axial source images. Images were reviewed on a high-resolution PACS workstation. Total radiation dose: Total CTDIvol: 22.4 mGy. Total DLP: 1299 mGy-cm. One or more of the following dose reduction techniques were used: automated exposure control, adjustment of the mA and/or kV according to patient size, or use of iterative reconstruction technique. COMPARISON: CT abdomen pelvis, 11/21/2016. FINDINGS: CT abdomen: The lung bases are clear. The heart is not enlarged without pericardial thickening or effusion.. There is 1.5 cm low density lesion in the inferior tip of the right liver, unchanged. The liver is normal in size and density without focal mass or intrahepatic biliary dilatation. The spleen is normal in size and homogeneous in density. The stomach is partially collapsed but is grossly unremarkable. The pancreas as visualized is normal. The gallbladder is normal and there is no evidence of biliary dilatation. The adrenal glands are symmetrical and normal. The kidneys are symmetrically normal bilaterally. No renal calculus or obstructive uropathy or mass lesion is seen.. The aorta is normal in caliber. There is no retroperitoneal lymphadenopathy. The earline hepatis region is clear. There are moderately dilated multiple loops of small bowel proximal to the umbilical hernia with decompressed distal ileal loops in keeping with at least partial small bowel obstruction. There is mild mesenteric edema in the root of the mesentery. CT pelvis: There is no indication of acute appendicitis in the right lower quadrant. There is diverticulosis of the sigmoid colon without evidence of diverticulitis.. The female pelvic organs are normal. The pelvic sidewalls and inguinal regions are clear. No mass, lymphadenopathy or free fluid is seen. No acute inflammation seen. The urinary bladder is normal. The surrounding osseous structures are unremarkable. No osteolytic or osteoblastic lesion is detected. IMPRESSION: 1. Moderately dilated multiple loops of small bowel proximal to the umbilical hernia with decompressed distal ileal loops in keeping with partial small bowel obstruction. There has been interval worsening of the small bowel obstruction. Recommend gastrografin small-bowel series. Small fluid in the hernia sac. 2. 1.5 cm low density lesion in the inferior tip of the right liver, unchanged. 3. Diverticulosis of the sigmoid colon without evidence of diverticulitis. RPTAT: GG .Federico Driver MD, MD Date Time Electronically viewed and signed by .Federico Driver MD, MD on 11/23/2016 18:25 .Y/ CC: NARENDRA GARCIA MD PROCEDURE: XR Abdomen. CLINICAL INDICATION: Nasogastric tube placement TECHNIQUE: AP abdomen x-ray 4 views COMPARISON: None. FINDINGS: There is a nasogastric tube placed, with the tip seen in the lower gastric body on the final image. There are dilated small bowel loops in the abdomen, measuring up to 6.4 cm on the left. There is contrast in the renal collecting systems and urinary bladder. There is moderate stool in the right colon. The osseus structures are unremarkable. IMPRESSION: 1. Nasogastric tube with the tip in the lower stomach on the fourth image.. 2. Dilated small bowel loops, up to 6.5 cm, likely consistent with small bowel obstruction.. RPTAT: HBST .Artemio Prajapati MD, MD Date Time Electronically viewed and signed by .Artemio Prajapati MD, MD on 11/23/2016 20:42 .T/ CC: NARENDRA GARCIA MD Labs Result Diagram: 11/24/165 11/24/16 043 Medications Medications Current Medications Morphine Sulfate (morphine) 3 mg Q2H PRN IV PAIN LEVEL 6-10; Start 11/23/16 at 23:00 Ketorolac Tromethamine (Toradol) 15 mg Q6H IV Last administered on 11/24/16t 03: 25; Admin Dose 15 MG; Start 11/23/16 at 23:00; Stop 11/25/16 at 17:01 Acetaminophen (Tylenol Tab) 650 mg Q6H PRN PO PAIN AND OR ELEVATED TEMP; Start 11/23/16 at 23:00 Ondansetron HCl (Zofran Inj) 4 mg Q6H PRN IV NAUSEA AND/OR VOMITING; Start 11/23 at 23:00 Enoxaparin Sodium 40 mg 40 mg DAILY@07 SC Last administered on 11/24/16 06:16; Admin Dose 40 MG; Start 11/24/16 at 07:00 Sodium Chloride (NS) 1,000 ml @ 80 mls/hr [id number] IV Last administered on 03:16; Admin Dose 80 MLS/HR; Start 11/24/16 at 01:40 Morphine Sulfate (morphine) 2 mg Q4H PRN IV SEVERE PAIN LEVEL 7-10; Start at 02:00 Pantoprazole (Protonix Iv) 40 mg DAILY@06 IV Last administered on 11/24/16 06: 14; Admin Dose 40 MG; Start 11/24/16 at 06:00 Hydralazine HCl (Apresoline) 10 mg Q4H PRN IV ELEVATED SYSTOLIC BP; Start at 02:00 Hydralazine HCl (Apresoline) 20 mg Q6H PRN IV ELEVATED SYSTOLIC BP; Start at 02:00 Diagnostic Test (Pha) (Accu-Chek) 1 ea 02 XX ; Start 11/24/16 at 02:00 Insulin Aspart NOVOLOG *MILD* ALGORI... Q4 SC ; Start 11/24/16 at 05:00 Cefazolin Sodium/ Dextrose (Ancef 2 Gm/50 ml (Pmx)) 50 ml @ 100 mls/hr Q8H IVPB Last administered on 11/24/16 03:25; Admin Dose 100 MLS/HR; Start 11/24/16 at 03:00; Stop 11/25/16 at 02:59 TRAN KNIGHT Nov 24, 2016 08:46
--- NOTE | 2016-11-24 10:40 | PN ---
Date/Time of Note Date/Time of Note DATE: 11/24/16 TIME: 10:40 Assessment/Plan VTE Prophylaxis VTE Prophylaxis Intervention: SCD's Lines/Catheters IV Catheter Type (from Nrs): Peripheral IV Assessment/Plan Chief Complaint/Hosp Course 1. Incarcerated umbilical hernia with small bowel obstruction. -Status post Repair of umbilical hernia with Reduction of small bowel obstruction 11/23/16 -Diet as tolerated 2.Type 2 diabetes mellitus-With good control. A1C 6.7 -Continue acuchecks/iss 3. Hypertension. Stable -Resume home meds 4. Dyslipidemia. -Resume statin. 5.FELICIANO,mild,likely 2/2 hemodynamics. Resolving. -Will monitor. 6.Leukocytosis. Likely reactive. -Will monitor. F/u cultures. PLAN: Advance diet. If stable, DC plan tomorrow. Patient wa erendira in collaboration with . Problems: Subjective 24 Hr Interval Summary Free Text/Dictation Doing well.Having mild pain on abdominal incisional sites. Exam/Review of Systems Vital Signs Vitals Vital Signs Date Time Temp Pulse Resp B/P Pulse Ox O2 Delivery O2 Flow Rate FiO2 11/24/16 08:30 Nasal Cannula 2.0 11/24/16 07:32 98.3 89 20 122/70 97 Intake and Output 11/23/16 11/23/16 11/24/16 15:00 23:00 07:00 Intake Total 330 ml Output Total 300 ml Balance 30 ml Exam General:Obese female, not in any acute distress . HEENT: Normocephalic, Atraumatic, No laceration or hematoma; Eyes: PEERL, Conjunctiva clear, Anicteric sclera Neck: Supple without any lymphadenopathy, nontender, no JVD, no carotid bruits, trachea midline, no thyromegaly Cardiac: S1, S2 auscultated, regular rhythm and rate, no mumurs or gallop Pulmonary: Normal respiratory effort. Chest clear to auscultation bilaterally, no adventitious breath sounds GI: Abdomen obese/distended inspection. Incision intact. no rebound tenderness or guarding. Bowel sounds hypoactive on all four quadrants Genitourinary: Deferred Extremities: No cyanosis, clubbing, or edema. Pulses [2+] bilaterally. Full ROM on all four extremities. No focal weakness appreciated. Neurologic: Alert to person, place, time, and situation. Affect appropriate, intact sensation. Skin: Clean,dry, and intact. No ecchymosis, no rashes, or lesions Results Result Diagram: 11/24/16 0435 11/24/16 0435 Results 24 hrs Laboratory Tests Test 11/23/16 14:30 11/23/16 17:30 11/23/16 21:50 11/24/16 03:13 White Blood Count 12.7 #H Red Blood Count 4.38 Hemoglobin 13.8 Hematocrit 40.8 Mean Corpuscular Volume 93.2 Mean Corpuscular Hemoglobin 31.5 Mean Corpuscular Hemoglobin Concent 33.8 Red Cell Distribution Width 12.1 Platelet Count 201 Mean Platelet Volume 9.5 Neutrophils % 68.5 Lymphocytes % 19.5 Monocytes % 11.4 H Eosinophils % 0.0 Basophils % 0.2 Nucleated Red Blood Cells % 0.0 Neutrophils # (Manual) 8.7 H Lymphocytes # 2.5 Monocytes # 1.5 H Eosinophils # 0.0 Basophils # 0.0 Nucleated Red Blood Cells # 0.0 Sodium Level 141 Potassium Level 3.9 Chloride Level 96 L Carbon Dioxide Level 31 Anion Gap 18 H Blood Urea Nitrogen 54 H Creatinine 1.22 H Glucose Level 209 Calcium Level 8.7 Total Bilirubin 0.5 Direct Bilirubin 0.00 Indirect Bilirubin 0.5 Aspartate Amino Transf (AST/SGOT) 47 H Alanine Aminotransferase (ALT/SGPT) 62 Alkaline Phosphatase 90 Total Protein 8.7 H Albumin 4.1 Globulin 4.60 H Albumin/Globulin Ratio 0.89 Lipase 81 Lactic Acid Level 3.1 *H 1.1 Bedside Glucose 139 Test 11/24/16 04:35 11/24/16 08:56 White Blood Count 13.8 H Red Blood Count 3.90 L Hemoglobin 11.9 L Hematocrit 37.3 Mean Corpuscular Volume 95.6 Mean Corpuscular Hemoglobin 30.5 Mean Corpuscular Hemoglobin Concent 31.9 L Red Cell Distribution Width 12.5 Platelet Count 146 # Mean Platelet Volume 10.2 Neutrophils % 77.4 H Lymphocytes % 12.3 L Monocytes % 9.7 Eosinophils % 0.0 Basophils % 0.2 Nucleated Red Blood Cells % 0.0 Neutrophils # (Manual) 10.7 H Lymphocytes # 1.7 Monocytes # 1.3 H Eosinophils # 0.0 Basophils # 0.0 Nucleated Red Blood Cells # 0.0 Sodium Level 140 Potassium Level 3.8 Chloride Level 101 Carbon Dioxide Level 31 Anion Gap 12 Blood Urea Nitrogen 53 H Creatinine 1.04 H Glucose Level 145 # Hemoglobin A1c 6.7 H Calcium Level 7.2 L Magnesium Level 3.3 H Total Bilirubin 0.1 L Direct Bilirubin 0.00 Indirect Bilirubin 0.1 Aspartate Amino Transf (AST/SGOT) 32 Alanine Aminotransferase (ALT/SGPT) 54 Alkaline Phosphatase 66 Total Protein 6.5 # Albumin 2.9 #L Globulin 3.60 H Albumin/Globulin Ratio 0.80 Triglycerides Level 110 Cholesterol Level 58 L LDL Cholesterol, Calculated 17 HDL Cholesterol 19 L Cholesterol/HDL Ratio 3.0 Thyroid Stimulating Hormone (TSH) 1.260 Bedside Glucose 124 Medications Medications Current Medications Morphine Sulfate (morphine) 3 mg Q2H PRN IV PAIN LEVEL 6-10; Start 11/23/16 at 23:00 Ketorolac Tromethamine (Toradol) 15 mg Q6H IV Last administered on 11/24/16 03: 25; Admin Dose 15 MG; Start 11/23/16 at 23:00; Stop 11/25/16 at 17:01 Acetaminophen (Tylenol Tab) 650 mg Q6H PRN PO PAIN AND OR ELEVATED TEMP; Start 11/23/16 at 23:00 Ondansetron HCl (Zofran Inj) 4 mg Q6H PRN IV NAUSEA AND/OR VOMITING; Start 11/23 at 23:00 Enoxaparin Sodium 40 mg 40 mg DAILY@07 SC Last administered on 11/24/16 06:16; Admin Dose 40 MG; Start 11/24/16 at 07:00 Sodium Chloride (NS) 1,000 ml @ 80 mls/hr [id number] IV Last administered on 03:16; Admin Dose 80 MLS/HR; Start 11/24/16 at 01:40 Morphine Sulfate (morphine) 2 mg Q4H PRN IV SEVERE PAIN LEVEL 7-10; Start at 02:00 Pantoprazole (Protonix Iv) 40 mg DAILY@06 IV Last administered on 11/24/16 06: 14; Admin Dose 40 MG; Start 11/24/16 at 06:00 Hydralazine HCl (Apresoline) 10 mg Q4H PRN IV ELEVATED SYSTOLIC BP; Start at 02:00 Hydralazine HCl (Apresoline) 20 mg Q6H PRN IV ELEVATED SYSTOLIC BP; Start at 02:00 Diagnostic Test (Pha) (Accu-Chek) XX ; Start 11/24/16 at 02:00 Insulin Aspart NOVOLOG *MILD* ALGORI... Q4 SC ; Start 11/24/16 at 05:00 Cefazolin Sodium/ Dextrose (Ancef 2 Gm/50 ml (Pmx)) 50 ml @ 100 mls/hr Q8H IVPB Last administered on 11/24/16t 03:25; Admin Dose 100 MLS/HR; Start 11/24/16 at 03:00; Stop 11/25/16 at 02:59 BEVERLEY CLEMENTE NP Nov 24, 2016 10:40
[2016-11-24] MEDS ORDERED: GLUCOSE GEL 15 GRAM TUBE BUCCAL PRN (11:30)
[2016-11-24] MEDS ORDERED: GLUCOSE GEL 15 GRAM TUBE PO PRN ×2 (11:30)
[2016-11-24] MEDS ORDERED: DEXTROSE 50% 50 ML SYRINGE IV PRN ×2 (11:30)
[2016-11-24] MEDS ORDERED: GLUCAGON 1 MG INJ IM PRN (11:30)
[2016-11-24] MEDS: HYDROCHLOROTHIAZIDE 25 MG TAB PO SCH (12:40)
[2016-11-24] MEDS: AMLODIPINE 10 MG TAB PO SCH (12:40)
[2016-11-24] MEDS: LISINOPRIL 20 MG TAB PO SCH (12:41)
[2016-11-24] MEDS: metFORMIN 500 MG TAB PO SCH (17:47)
[2016-11-24] MEDS ORDERED: ATORVASTATIN 40 MG TAB PO SCH (21:00)
--- NOTE | 2016-11-24 21:17 | PN ---
Date/Time of Note Date/Time of Note DATE: 11/24/16 TIME: 21:16 Assessment/Plan Lines/Catheters IV Catheter Type (from Nrsg): Peripheral IV Assessment/Plan Assessment/Plan Postop day 1 status post umbilical hernia repair with mesh and reduction of small bowel obstruction Advance to soft diet tomorrow Okay for discharge tomorrow Subjective 24 Hr Interval Summary Additional Comments She is feeling better. Tolerating clear liquids. Passing flatus. Some pain to her incision Exam/Review of Systems Vital Signs Vitals Vital Signs Date Time Temp Pulse Resp B/P Pulse Ox O2 Delivery O2 Flow Rate FiO2 11/24/16 19:53 98.6 82 18 120/62 97 11/24/16 12:44 Room Air 11/24/16 08:30 2.0 Intake and Output 11/23/16 11/23/16 11/24/16 15:00 23:00 07:00 Intake Total 330 ml Output Total 300 ml Balance 30 ml Exam Neck: supple Respiratory: clear to auscultation Cardiovascular: regular rate and rhythm Gastrointestinal: soft (Incisional tenderness) Results Result Diagram: 11/24/16 0435 11/24/16 0435 EUGENIO MERAZ MD Nov 24, 2016 21:17
[2016-11-25] MEDS: ACCU-CHEK XX SCH (02:00)
[2016-11-25 02:25] VITALS: BP 118/75; RESP 20
[2016-11-25 05:51] LABS: BASOPHILS % 0.2 % (0.0-2.0); EOSINOPHILS # 0.1 10^3/ul (0.0-0.5); EOSINOPHILS % 0.4 % (0.0-7.0); HEMATOCRIT 35.2 % (37.0-47.0); HEMOGLOBIN 11.4 g/dl (12.0-16.0); LYMPHOCYTES # 1.5 10^3/ul (0.8-2.9); LYMPHOCYTES % 12.5 % (15.0-51.0); MEAN CORPUSCULAR HEMOGLOBIN 31.1 pg (29.0-33.0); MEAN CORPUSCULAR HGB CONC 32.4 g/dl (32.0-37.0); MEAN CORPUSCULAR VOLUME 96.2 fl (82.0-101.0); MEAN PLATELET VOLUME 10.4 fl (7.4-10.4); MONOCYTE # 1.1 10^3/ul (0.3-0.9); MONOCYTES % 8.8 % (0.0-11.0); NEUTROPHILS % 77.7 % (39.0-77.0); PLATELET COUNT 120 10^3/UL (140-415); RED BLOOD COUNT 3.66 10^6/ul (4.20-5.40); RED CELL DISTRIBUTION WIDTH 12.4 % (11.5-14.5); WHITE BLOOD COUNT 12.3 10^3/ul (4.8-10.8)
[2016-11-25] MEDS ORDERED: LANSOPRAZOLE 30 MG CAP NGT SCH (06:00)
[2016-11-25 06:04] LABS: CREATININE 0.89 mg/dl (0.44-1.00); POTASSIUM 3.8 mmol/L (3.5-5.1)
[2016-11-25] MEDS: KETOROLAC 15 MG INJ IV SCH ×2 (06:06→11:00)
[2016-11-25] MEDS: SOD CHLORIDE 0.9% 1,000 ML IV SCH ×2 (06:06→14:29)
[2016-11-25] MEDS: INSULIN ASPART [NOVOLOG] 3 ML PEN SC SCH ×2 (07:20→11:10)
[2016-11-25 07:51] VITALS: BP 102/57; RESP 20
[2016-11-25] MEDS: metFORMIN 500 MG TAB PO SCH (08:48)
[2016-11-25] MEDS: HYDROCHLOROTHIAZIDE 25 MG TAB PO SCH (08:56)
[2016-11-25] MEDS: LISINOPRIL 20 MG TAB PO SCH (08:57)
[2016-11-25] MEDS: AMLODIPINE 10 MG TAB PO SCH (08:57)
--- NOTE | 2016-11-25 09:53 | PDOCDIS ---
Discharge Instructions CONDITION Patient Condition: Stable HOME CARE INSTRUCTIONS: Your diet recommendation is: soft diet FOLLOW UP/APPOINTMENTS Follow-up Plan 1. Follow-up with Dr. Tate in 1 week [address] [facility] [address] [place] [address] Office 2.Follow up with primary care physician in 1 week If you don't have one please let someone know, we can give you resources that may help you pick one. You may also call your insurance company to assign one to you. Review your medication list with your nurse before leaving and if you need new prescriptions please let your nurse know. I may have made changes to your home medications or given you new prescriptions, please let your primary doctor know as well. Stay compliant with your medications and report any side effects to your PCP or pharmacist. Return to the ER if you have any concerns and cannot reach your doctors or call your insurance company, they usually have a nurse that can help you. 3. Call 911 or go to the nearest emergency room if experiencing loss of consciousness, dizziness, chest pain, shortness of breath, vomiting/abdominal pain, speech difficulties, motor weakness or any unusual symptoms. BEVERLEY CLEMENTE NP Nov 25, 2016 09:53
[2016-11-25] MEDS ORDERED: HYDR-906 PO (10:04)
[2016-11-25] MEDS ORDERED: DOCU-144 PO (10:20)
[2016-11-25] MEDS ORDERED: OXYC-279 PO (10:20)
--- NOTE | 2016-11-25 14:04 | DS ---
Date/Time of Note Date/Time of Note DATE: 11/25/16 TIME: 14:02 Discharge Summary Admission/Discharge Info Admit Date/Time Nov 23, 2016 at 19:29 Discharge Date/Time Discharge Diagnosis 1. Incarcerated umbilical hernia with small bowel obstruction. Status post Repair of umbilical hernia with Reduction of small bowel obstruction 11/23/16 2.Type 2 diabetes mellitus 3. Hypertension. 4. Dyslipidemia. 5.FELICIANO,mild,likely 2/2 hemodynamics. Resolved 6.Leukocytosis. Likely reactive. Stable Patient Condition: Stable Consults Dr. Tate, surgery Procedures 07/2016. CT abdomen and pelvis Moderately dilated multiple loops of small bowel proximal to the umbilical hernia with decompressed distal ileal loops in keeping with partial small bowel obstruction. There has been interval worsening of the small bowel obstruction. Recommend gastrografin small-bowel series. Small fluid in the hernia sac. 11/23/2016. OPERATION PERFORMED: Repair of umbilical hernia with Reduction of small bowel obstruction 11/23/16 Hx of Present Illness Complaint: Abdominal pain This is a 66-year-old female with a history of diabetes, hypertension, hyperlipidemia, known periumbilical abdominal hernia who is presenting to the emergency department with recurrence of her abdominal symptoms. The patient presented 3 days ago with similar symptoms of periumbilical abdominal pain and distention with nausea and vomiting. The patient endorses yellow and clear vomit. It is nonbilious and nonbloody. The patient had a CAT scan during her previous emergency visit that demonstrated a small bowel containing periumbilical hernia with moderate dilatation of multiple loops of proximal small bowel with decompressed ileal loops that was concerning for a partial small bowel obstruction. There is also a 1.8 cm indeterminate hypodensity in the liver. A surgical evaluation was completed and it was felt that the patient was stable for discharge after decompression of the hernia. The patient 's symptoms recurred one day after her previous visit. She continues to have periumbilical abdominal pain. She continues to be nauseated and with vomiting as described above. She has had a decreased appetite as well. She saw her primary care doctor today who recommended that she be reevaluated in the emergency department. Upon my examination of the patient, the patient had already returned from surgery for repair of her incarcerated hernia and was doing well. Allergies: NKDA Medications: See MAR Hospital Course This is a 66-year-old female with a past medical history of type 2 diabetes, obesity, hypertension, dyslipidemia, who presented to the emergency room for evaluation of recurrent generalized abdominal pain with distention, nausea and nonbilious, nonbloody vomiting for a [address] scan was consistent with small bowel obstruction and umbilical hernia. Patient was admitted and a surgery consultation was called. On 11/24/2016, patient had undergone umbilical hernia repair with reduction of small bowel obstruction. Patient tolerated procedure well. She was continued on insulin for diabetes. She was resumed on her home medication for underlying comorbid conditions. Patient did not have any signs of infection postoperatively. Patient's renal function remained stable. At this time, patient is feeling back to her baseline. As per surgery recommendation, patient is stable for discharge with outpatient follow-up. Disposition: Patient will be discharged home today. She was instructed to follow-up with surgery in 1 week. Patient was instructed to keep incision site clean and dry. Patient and family verbalized discharge instructions. Approximately 60 minutes was spent in coordinating the discharge on this patient. Patient was seen in collaboration with . Home Meds Active Scripts Docusate Sodium* (Colace*) 100 Mg Capsule, 100 MG PO BID, #60 CAP Prov:BEVERLEY CLEMENTE V. DIPPER MACHINE OPERATOR 11/25/16 Oxycodone HCl/Acetaminophen (Percocet 5-325 mg Tablet) 1 Each Tablet, 1 EACH PO Q6H for PAIN, #30 TAB Prov:BEVERLEY CLEMENTE V. DIPPER MACHINE OPERATOR 11/25/16 Ondansetron (Ondansetron Odt) 4 Mg Tab.rapdis, 4 MG PO Q6H Y for NAUSEA AND/OR VOMITING, #10 TAB Prov:ZBIGNIEW ABRAHAM DO 11/21/16 Reported Medications Carvedilol* (Carvedilol*) 6.25 Mg Tablet, 6.25 MG PO BID, #60 TAB 11/21/16 Atorvastatin* (Atorvastatin*) 40 Mg Tablet, 40 MG PO DAILY, #30 TAB 11/21/16 Glimepiride* (Glimepiride*) 2 Mg Tablet, 2 MG PO WITH BREAKFAST, TAB 11/21/16 Lisinopril* (Lisinopril*) 20 Mg Tablet, 20 MG PO DAILY, #30 TAB 11/21/16 Amlodipine Besylate* (Amlodipine Besylate*) 10 Mg Tablet, 10 MG PO DAILY, #30 TAB 11/21/16 Hydrochlorothiazide* (Hydrochlorothiazide*) 25 Mg Tab, 25 MG PO DAILY, #30 TAB 11/21/16 Metformin Hcl* (Metformin Hcl*) 1,000 Mg Tablet, 1000 MG PO WITH BREAKFAST DINNE , #60 TAB 11/21/16 Follow-up Plan HOME CARE INSTRUCTIONS: Your diet recommendation is: soft diet FOLLOW UP/APPOINTMENTS Follow-up Plan 1. Follow-up with Dr. Tate in 1 week [address] [facility] [address] [place] [address] Office 2.Follow up with primary care physician in 1 week If you don't have one please let someone know, we can give you resources that may help you pick one. You may also call your insurance company to assign one to you. Review your medication list with your nurse before leaving and if you need new prescriptions please let your nurse know. I may have made changes to your home medications or given you new prescriptions, please let your primary doctor know as well. Stay compliant with your medications and report any side effects to your PCP or pharmacist. Return to the ER if you have any concerns and cannot reach your doctors or call your insurance company, they usually have a nurse that can help you. 3. Call 911 or go to the nearest emergency room if experiencing loss of consciousness, dizziness, chest pain, shortness of breath, vomiting/abdominal pain, speech difficulties, motor weakness or any unusual symptoms. Primary Care Provider Care Physician No Primary Pending Labs Laboratory Tests Test 11/24/16 17:45 11/24/16 21:08 11/25/16 04:37 11/25/16 08:46 Bedside Glucose 158mg/dL (70-220) 116mg/dL (70-220) 90mg/dL (70-220) White Blood Count 12.310^3/ul (4.8-10.8) Red Blood Count 3.6610^6/ul (4.20-5.40) Hemoglobin 11.4g/dl (12.0-16.0) Hematocrit 35.2% (37.0-47.0) Mean Corpuscular Volume 96.2fl (82.0-101.0) Mean Corpuscular Hemoglobin 31.1pg (29.0-33.0) Mean Corpuscular Hemoglobin Concent 32.4g/dl (32.0-37.0) Red Cell Distribution Width 12.4% (11.5-14.5) Platelet Count 12446^3/UL (140-415) Mean Platelet Volume 10.4fl (7.4-10.4) Neutrophils % 77.7% (39.0-77.0) Lymphocytes % 12.5% (15.0-51.0) Monocytes % 8.8% (0.0-11.0) Eosinophils % 0.4% (0.0-7.0) Basophils % 0.2% (0.0-2.0) Nucleated Red Blood Cells % 0.0/100WBC (0.0-0.0) Neutrophils # (Manual) 9.510^3/ul (1.7-7.5) Lymphocytes # 1.510^3/ul (0.8-2.9) Monocytes # 1.110^3/ul (0.3-0.9) Eosinophils # 0.110^3/ul (0.0-0.5) Basophils # 0.010^3/ul (0.0-0.1) Nucleated Red Blood Cells # 0.010^3/ul (0.0-0.0) Sodium Level 138mmol/L (135-144) Potassium Level 3.8mmol/L (3.5-5.1) Chloride Level 107mmol/L (97-110) Carbon Dioxide Level 26mmol/L (21-31) Anion Gap 9 (8-16) Blood Urea Nitrogen 40mg/dl (7-20) Creatinine 0.89mg/dl (0.44-1.00) Glucose Level 97mg/dl (70-220) Calcium Level 7.0mg/dl (8.4-10.2) Test 11/25/16 12:36 Bedside Glucose 96mg/dL (70-220) BEVERLEY CLEMENTE NP Nov 25, 2016 14:04
== END 2016-11-25 16:00 | disposition home or self-care (01) | DRG 354 ==
LOC: E/R 11:30 → MS1 19:29
PROVIDERS: ADMIT Internal Medicine; ATTEND Internal Medicine
PROC: 0WUF0JZ Supplement Abdominal Wall with Synthetic Substitute, Open Approach (ICD-10-PCS; principal; 2016-11-24)
DX: K42.0 Umbilical hernia with obstruction, without gangrene (principal); N17.9 Acute kidney failure, unspecified; E11.9 Type 2 diabetes mellitus without complications; I10 Essential (primary) hypertension; E78.5 Hyperlipidemia, unspecified; E66.01 Morbid (severe) obesity due to excess calories; Z68.38 Body mass index [BMI] 38.0-38.9, adult; Z79.4 Long term (current) use of insulin; Z79.84 Long term (current) use of oral hypoglycemic drugs
CPT/HCPCS: 36415; 74000; 74177; 80048; 80053; 80061; 82962; 83036; 83605; 83690; 83735; 84443; 85025; 88302; 93005; 96374; C1781; C9113; J0690; J1650; J1815; J1885; J2175; J2405; J2710; J3480; J7030; J7999; Q9967